=== PATIENT | male | born 1960 | race Asian ===

== ENCOUNTER 2017-03-30 11:24 | Day surgery (SDC) | END 2017-03-30 18:43 | disposition home or self-care (01) | DX: D36.12 Benign neoplasm of peripheral nerves and autonomic nervous system, upper limb, including shoulder (principal); L98.499 Non-pressure chronic ulcer of skin of other sites with unspecified severity | CPT/HCPCS: 14020; 71010; 80053; 85025; 85610; 85730; 88307; 93005; J0690; J1100; J2250; J2405; J3010; Z7512; Z7610 ==